=== PATIENT | male | born 1990 | race African-American/Black ===

== ENCOUNTER 2018-02-08 20:27 | Inpatient (IN) | payer OTHER ==
[~2018-02-08] VITALS: Ht 180.3 cm; Wt 68.0 kg
[2018-02-08 22:24] VITALS: Ht 180.3 cm; Wt 68.0 kg
[2018-02-08 22:58] LABS: BASOPHIL % 1.3 % (0-2); PLATELET COUNT 256 x10^3mcL (130-400); RED CELL DISTRIBUTION WIDTH 12.9 % (11.5-14.5)
[2018-02-08 23:50] LABS: AMPHETAMINE QUAL UR NONE DETECTED (NEG <=1000)
[2018-02-09 00:22] LABS: CALCIUM 9.2 mg/dL (8.5-10.1); CARBON DIOXIDE 27.6 mmol/L (21-32); CHLORIDE SERUM 102 mmol/L (98-107); CREATININE SERUM 1.2 mg/dL (0.7-1.3); GFR1 > 60 mL/min; GLUCOSE SERUM 83 mg/dL (74-106); POTASSIUM SERUM 3.5 mmol/L (3.5-5.1); SODIUM SERUM 139 mmol/L (136-145)
[2018-02-09 00:27] LABS: ALBUMIN 4.4 g/dL (3.4-5.0); ALKALINE PHOSPHATASE 69 U/L (46-116); ALT/SGPT 31 U/L (16-63); AST/SGOT 15 U/L (15-37); BILIRUBIN TOTAL 0.5 mg/dL (0.20-1.00)
[2018-02-09 16:16] LABS: microscopic required? NO
[2018-02-09] MEDS ORDERED: LAMICTAL150 MG PO (16:24)
[2018-02-09] MEDS ORDERED: ST. JOHN'S WOR150 M1 (16:25)
[2018-02-09 16:48] VITALS: BP 138/87
[2018-02-09 16:49] VITALS: BP 138/87
[2018-02-09] MEDS ORDERED: RISPERDAL3 M1 PO (16:54)
[2018-02-09 17:18] LABS: CHOLESTEROL/HDL RATIO 3.2; MAGNESIUM 2.3 mg/dL (1.8-2.4); PHOSPHOROUS 3.6 mg/dL (2.5-4.9)
[2018-02-09 17:24] LABS: T3 TOTAL 1.05 ng/mL
[2018-02-09 17:27] LABS: FREE T4 1.03 ng/dL (0.76-1.46); FREE THYROXINE INDEX 2.7 ug/dL (1.4-4.5)
[2018-02-09 18:15] LABS: urine erythrocyte NEGATIVE (NEGATIVE)
[2018-02-09 21:44] VITALS: BP 127/89
[2018-02-10 06:10] VITALS: BP 90/62
[2018-02-10 06:10] LABS: BASOPHIL % 0.6 % (0-2); PLATELET COUNT 229 x10^3mcL (130-400); RED CELL DISTRIBUTION WIDTH 12.4 % (11.5-14.5)
[2018-02-10 06:31] LABS: CARBON DIOXIDE 27.6 mmol/L (21-32); CHLORIDE SERUM 106 mmol/L (98-107); CREATININE SERUM 1.2 mg/dL (0.7-1.3); GFR1 > 60 mL/min; GLUCOSE SERUM 86 mg/dL (74-106); PHOSPHOROUS 4.8 mg/dL (2.5-4.9); SODIUM SERUM 145 mmol/L (136-145)
[2018-02-10 09:23] VITALS: BP 128/84
[2018-02-10 20:44] VITALS: BP 116/71
[2018-02-11 06:09] VITALS: BP 119/74
[2018-02-11 08:29] VITALS: BP 118/76
[2018-02-11 13:22] VITALS: BP 120/84
[2018-02-11] MEDS ORDERED: BUS5 PO (15:39)
[2018-02-11 17:27] VITALS: BP 141/95
== END 2018-02-11 19:22 | disposition home or self-care (01) | DRG 753 ==
LOC: ED 20:27 → DU 02-09 16:00
PROVIDERS: Emergency Medicine; Family Medicine Sports Medicine
DX: F31.4 Bipolar disorder, current episode depressed, severe, without psychotic features (principal); F25.1 Schizoaffective disorder, depressive type; E78.5 Hyperlipidemia, unspecified; Z91.14 Patient's other noncompliance with medication regimen; F17.210 Nicotine dependence, cigarettes, uncomplicated; F42.9 Obsessive-compulsive disorder, unspecified; F41.9 Anxiety disorder, unspecified
CPT/HCPCS: 83880; 84439; G0480

== ENCOUNTER 2018-04-06 12:06 | Emergency (ER) | payer SELFPAY ==
[~2018-04-06] VITALS: Ht 180.3 cm; Wt 77.1 kg
[~2018-04-06 12:06] MED LIST: BUS5 PO; LAMICTAL150 MG PO; RISPERDAL3 M1 PO; ST. JOHN'S WOR150 M1
[2018-04-06 12:24] VITALS: Ht 180.3 cm; Wt 77.1 kg
[2018-04-06 13:03] VITALS: BP 115/69
== END 2018-04-06 13:03 | disposition home or self-care (01) ==
LOC: ED 12:06
DX: F91.9 Conduct disorder, unspecified (principal); Z76.0 Encounter for issue of repeat prescription

== ENCOUNTER 2018-09-19 07:20 | Inpatient (IN) | payer MEDICAID ==
[~2018-09-19] VITALS: Ht 180.3 cm; Wt 65.0 kg
[2018-09-19 07:30] VITALS: Ht 180.3 cm; Wt 65.0 kg
[2018-09-19 08:20] LABS: BASOPHIL % 0.6 % (0-2); PLATELET COUNT 234 x10^3mcL (130-400); RED CELL DISTRIBUTION WIDTH 11.6 % (11.5-14.5)
[2018-09-19 08:34] LABS: ALBUMIN 4.1 g/dL (3.4-5.0); ALKALINE PHOSPHATASE 62 U/L (46-116); ALT/SGPT 31 U/L (16-63); AST/SGOT 22 U/L (15-37); BILIRUBIN TOTAL 0.79 mg/dL (0.20-1.00); CALCIUM 8.7 mg/dL (8.5-10.1); CARBON DIOXIDE 30.4 mmol/L (21-32); CHLORIDE SERUM 104 mmol/L (98-107); CREATININE SERUM 1.1 mg/dL (0.7-1.3); GFR1 > 60 mL/min; GLUCOSE SERUM 89 mg/dL (74-106); POTASSIUM SERUM 3.6 mmol/L (3.5-5.1); SODIUM SERUM 143 mmol/L (136-145); TOTAL PROTEIN, SERUM 7.7 g/dL (6.4-8.2)
[2018-09-19 09:56] LABS: UA SPECIFIC GRAVITY >=1.030 (1.005-1.035); microscopic required? YES; urine erythrocyte NEGATIVE (NEGATIVE)
[2018-09-19 10:03] LABS: AMPHETAMINE QUAL UR NONE DETECTED (See below)
[2018-09-20 02:33] VITALS: BP 112/81
[2018-09-20 02:48] LABS: PHOSPHOROUS 4.4 mg/dL (2.5-4.9)
[2018-09-20 02:49] LABS: CHOLESTEROL/HDL RATIO 2.4
[2018-09-20 02:56] LABS: T3 TOTAL 0.94 ng/mL
[2018-09-20 03:01] LABS: FREE T4 0.91 ng/dL (0.76-1.46); FREE THYROXINE INDEX 2.2 ug/dL (1.4-4.5); T4(THYROXINE) 6.1 ug/dL (4.7-13.3)
[2018-09-20 05:14] VITALS: BP 112/69
[2018-09-20 10:30] VITALS: BP 112/83
[2018-09-20 20:49] VITALS: BP 112/62
[2018-09-21 05:26] VITALS: BP 118/79
[2018-09-21 08:37] VITALS: BP 130/76
[2018-09-21 16:39] VITALS: BP 131/83
[2018-09-21 21:49] VITALS: BP 106/61
[2018-09-22 05:29] VITALS: BP 117/93
[2018-09-22 08:08] VITALS: BP 113/76
[2018-09-22 17:15] VITALS: BP 124/88
[2018-09-22 21:22] VITALS: BP 129/78
[2018-09-23 05:13] VITALS: BP 122/85
[2018-09-23 09:45] VITALS: BP 123/88
[2018-09-23 18:46] VITALS: BP 124/81
[2018-09-23 20:31] VITALS: BP 114/71
[2018-09-24 06:14] VITALS: BP 123/85
[2018-09-24 06:56] LABS: CALCIUM 9.1 mg/dL (8.5-10.1); CARBON DIOXIDE 29.7 mmol/L (21-32); CHLORIDE SERUM 103 mmol/L (98-107); CREATININE SERUM 1.1 mg/dL (0.7-1.3); GFR1 > 60 mL/min; GLUCOSE SERUM 84 mg/dL (74-106); POTASSIUM SERUM 3.8 mmol/L (3.5-5.1); SODIUM SERUM 138 mmol/L (136-145)
[2018-09-24 07:39] LABS: BASOPHIL % 0.6 % (0-2); PLATELET COUNT 213 x10^3mcL (130-400); RED CELL DISTRIBUTION WIDTH 12.8 % (11.5-14.5)
[2018-09-24 08:50] VITALS: BP 125/84
[2018-09-24 16:35] VITALS: BP 120/82
[2018-09-24 19:48] VITALS: BP 122/86
[2018-09-25 05:50] VITALS: BP 118/85
[2018-09-25 09:02] VITALS: BP 119/78
[2018-09-25 17:57] VITALS: BP 124/89
[2018-09-25 19:52] VITALS: BP 123/81
[2018-09-26 06:19] VITALS: BP 119/78
[2018-09-26 07:33] VITALS: BP 109/61
[2018-09-26 12:04] VITALS: BP 120/76
[2018-09-26 13:02] VITALS: BP 120/76
[2018-09-26 16:01] VITALS: BP 127/81
[2018-09-26 21:00] VITALS: BP 112/84
[2018-09-27 05:00] VITALS: BP 107/75
[2018-09-27 08:04] VITALS: BP 131/74
[2018-09-27 17:45] VITALS: BP 123/83
[2018-09-27 20:13] VITALS: BP 107/69
[2018-09-28 06:54] VITALS: BP 115/79
[2018-09-28 08:38] VITALS: BP 120/81
== END 2018-09-28 14:26 | disposition home or self-care (01) | DRG 751 ==
LOC: ED 07:20 → MU 09-20 00:52
PROVIDERS: Emergency Medicine; Family Medicine; Internal Medicine
DX: F23 Brief psychotic disorder (principal); N17.0 Acute kidney failure with tubular necrosis; R45.850 Homicidal ideations; R45.851 Suicidal ideations; F32.9 Major depressive disorder, single episode, unspecified; Z68.20 Body mass index [BMI] 20.0-20.9, adult; F17.210 Nicotine dependence, cigarettes, uncomplicated
CPT/HCPCS: 84439; 90658; G0480; J7030; Q0092

== ENCOUNTER 2018-09-29 09:48 | Emergency (ER) | payer MEDICAID ==
[~2018-09-29] VITALS: Ht 180.3 cm; Wt 67.1 kg
[2018-09-29 09:50] VITALS: BP 132/68; Ht 180.3 cm; Wt 67.1 kg
== END 2018-09-29 10:52 | disposition home or self-care (01) ==
LOC: ED 09:48
DX: R45.851 Suicidal ideations (principal)

== ENCOUNTER 2018-10-03 08:36 | Inpatient (IN) | payer MEDICAID ==
[~2018-10-03] VITALS: Ht 180.3 cm; Wt 66.3 kg
[2018-10-03 08:44] VITALS: Ht 180.3 cm; Wt 66.3 kg
[2018-10-03 10:03] LABS: CALCIUM 8.6 mg/dL (8.5-10.1); CARBON DIOXIDE 29.9 mmol/L (21-32); CHLORIDE SERUM 99 mmol/L (98-107); CREATININE SERUM 1.2 mg/dL (0.7-1.3); GFR1 > 60 mL/min; GLUCOSE SERUM 95 mg/dL (74-106); POTASSIUM SERUM 3.7 mmol/L (3.5-5.1); SODIUM SERUM 136 mmol/L (136-145)
[2018-10-03 10:06] LABS: BASOPHIL % 0.4 % (0-2); PLATELET COUNT 188 x10^3mcL (130-400); RED CELL DISTRIBUTION WIDTH 12.3 % (11.5-14.5)
[2018-10-03 10:16] LABS: ALBUMIN 3.6 g/dL (3.4-5.0); ALKALINE PHOSPHATASE 74 U/L (46-116); ALT/SGPT 51 U/L (16-63); AST/SGOT 24 U/L (15-37); BILIRUBIN TOTAL 1.3 mg/dL (0.20-1.00); T4(THYROXINE) 5.7 ug/dL (4.7-13.3); TOTAL PROTEIN, SERUM 7.5 g/dL (6.4-8.2)
[2018-10-03 10:30] LABS: UA SPECIFIC GRAVITY 1.025 (1.005-1.035); microscopic required? YES; urine erythrocyte TRACE (NEGATIVE)
[2018-10-03 10:43] LABS: AMPHETAMINE QUAL UR NONE DETECTED (See below)
[2018-10-03 11:52] LABS: microscopic required? NO
[2018-10-03 12:34] LABS: urine erythrocyte NEGATIVE (NEGATIVE)
[2018-10-04 14:13] LABS: PHOSPHOROUS 4.2 mg/dL (2.5-4.9)
[2018-10-04 14:14] LABS: CHOLESTEROL/HDL RATIO 2.6
[2018-10-04 15:08] VITALS: BP 116/77
[2018-10-04 17:23] VITALS: BP 116/77
[2018-10-04 20:30] VITALS: BP 102/61
[2018-10-05 04:28] VITALS: BP 106/70
[2018-10-05 05:53] LABS: BASOPHIL % 0.5 % (0-2); PLATELET COUNT 195 x10^3mcL (130-400); RED CELL DISTRIBUTION WIDTH 12.5 % (11.5-14.5)
[2018-10-05 06:08] LABS: CALCIUM 8.2 mg/dL (8.5-10.1); CHLORIDE SERUM 107 mmol/L (98-107); GFR1 > 60 mL/min; GLUCOSE SERUM 93 mg/dL (74-106); MAGNESIUM 2.1 mg/dL (1.8-2.4); PHOSPHOROUS 4.4 mg/dL (2.5-4.9); POTASSIUM SERUM 3.7 mmol/L (3.5-5.1); SODIUM SERUM 142 mmol/L (136-145)
[2018-10-05 07:55] VITALS: BP 123/91
[2018-10-05 12:14] VITALS: BP 104/70
[2018-10-05] MEDS ORDERED: BAY PO (15:35)
[2018-10-05] MEDS ORDERED: LOV60I SC (15:35)
[2018-10-05 15:36] VITALS: BP 104/70
[2018-10-05 16:29] VITALS: BP 117/74
[2018-10-05] MEDS ORDERED: METOPROLOL TART25 M1 PO (16:38)
[2018-10-05 20:58] VITALS: BP 105/65
[2018-10-06 05:32] VITALS: BP 110/79
[2018-10-06 08:50] VITALS: BP 114/75
[2018-10-06 12:15] VITALS: BP 116/71
[2018-10-06 17:07] VITALS: BP 105/64
[2018-10-06 21:25] VITALS: BP 109/71
[2018-10-07 05:39] VITALS: BP 106/69
[2018-10-07 06:02] LABS: BASOPHIL % 0.5 % (0-2); PLATELET COUNT 232 x10^3mcL (130-400); RED CELL DISTRIBUTION WIDTH 12.9 % (11.5-14.5)
[2018-10-07 06:15] LABS: CALCIUM 8.3 mg/dL (8.5-10.1); CARBON DIOXIDE 29.6 mmol/L (21-32); CHLORIDE SERUM 110 mmol/L (98-107); GFR1 > 60 mL/min; GLUCOSE SERUM 86 mg/dL (74-106); PHOSPHOROUS 3.6 mg/dL (2.5-4.9); SODIUM SERUM 146 mmol/L (136-145)
[2018-10-07 08:03] VITALS: BP 112/76
[2018-10-07 13:03] VITALS: BP 110/76
[2018-10-07 17:09] VITALS: BP 115/74
[2018-10-07 18:03] VITALS: BP 115/74
[2018-10-08] MEDS ORDERED: WELLBUTRIN XL150 M1 PO (20:42)
[2018-10-08] MEDS ORDERED: BUSPIRONE HCL10 MG PO (20:42)
[2018-10-08] MEDS ORDERED: COLACE100 MG PO (20:42)
[2018-10-08] MEDS ORDERED: LOV40I SC (20:42)
[2018-10-08] MEDS ORDERED: GOOD SENSE ASPI81 M3 PO (20:43)
[2018-10-08] MEDS ORDERED: METOPROLOL TART25 M1 PO (20:43)
[2018-10-08] MEDS ORDERED: SEROQUEL50 M1 PO (20:43)
[2018-10-08] MEDS ORDERED: NORCO1 TA2 PO (20:44)
[2018-10-08] MEDS ORDERED: ZOF4 PO (20:44)
[2018-10-08] MEDS ORDERED: OSCD PO (20:45)
[2018-10-08] MEDS ORDERED: APAP500 MG PO (20:45)
== END 2018-10-07 18:58 | disposition short-term general hospital (02) | DRG 753 ==
LOC: ED 08:36 → DU 10-04 12:39 → MU 10-04 12:39 → DU 10-04 14:52 → MU 10-04 14:55 → DU 10-04 15:21
PROVIDERS: Emergency Medicine; Family Medicine; Internal Medicine
DX: F31.9 Bipolar disorder, unspecified (principal); I24.9 Acute ischemic heart disease, unspecified; R45.851 Suicidal ideations; E83.51 Hypocalcemia; R45.850 Homicidal ideations; Z91.5 Personal history of self-harm; Z68.21 Body mass index [BMI] 21.0-21.9, adult; F17.210 Nicotine dependence, cigarettes, uncomplicated
CPT/HCPCS: 83880; G0480; J1650; J7030; Q0092; Q0163

== ENCOUNTER 2018-10-08 20:13 | Inpatient (IN) | payer MEDICAID ==
[~2018-10-08] VITALS: Ht 180.3 cm; Wt 66.8 kg
[~2018-10-08 20:13] MED LIST changes: +BAY PO; +LOV60I SC; +METOPROLOL TART25 M1 PO
[2018-10-08 20:28] VITALS: BP 132/85
[2018-10-08] MEDS ORDERED: LOV40I SC (20:42)
[2018-10-08] MEDS ORDERED: WELLBUTRIN XL150 M1 PO (20:42)
[2018-10-08] MEDS ORDERED: BUSPIRONE HCL10 MG PO (20:42)
[2018-10-08] MEDS ORDERED: COLACE100 MG PO (20:42)
[2018-10-08] MEDS ORDERED: SEROQUEL50 M1 PO (20:43)
[2018-10-08] MEDS ORDERED: GOOD SENSE ASPI81 M3 PO (20:43)
[2018-10-08] MEDS ORDERED: METOPROLOL TART25 M1 PO (20:43)
[2018-10-08] MEDS ORDERED: ZOF4 PO (20:44)
[2018-10-08] MEDS ORDERED: NORCO1 TA2 PO (20:44)
[2018-10-08] MEDS ORDERED: OSCD PO (20:45)
[2018-10-08] MEDS ORDERED: APAP500 MG PO (20:45)
[2018-10-09 05:49] VITALS: BP 109/67
[2018-10-09 06:48] LABS: BASOPHIL % 0.1 % (0-2); PLATELET COUNT 306 x10^3mcL (130-400); RED CELL DISTRIBUTION WIDTH 12.9 % (11.5-14.5)
[2018-10-09 06:55] LABS: CALCIUM 9.3 mg/dL (8.5-10.1); CARBON DIOXIDE 27.5 mmol/L (21-32); CHLORIDE SERUM 101 mmol/L (98-107); CREATININE SERUM 1.1 mg/dL (0.7-1.3); GFR1 > 60 mL/min; GLUCOSE SERUM 90 mg/dL (74-106); POTASSIUM SERUM 4.2 mmol/L (3.5-5.1); SODIUM SERUM 138 mmol/L (136-145)
[2018-10-09 07:16] VITALS: BP 122/67
[2018-10-09 12:53] VITALS: BP 101/67
[2018-10-09 17:12] VITALS: BP 104/61
[2018-10-09 21:05] VITALS: BP 115/64
[2018-10-10 05:55] VITALS: BP 110/68
[2018-10-10 06:52] LABS: BASOPHIL % 0.4 % (0-2); PLATELET COUNT 308 x10^3mcL (130-400); RED CELL DISTRIBUTION WIDTH 13.2 % (11.5-14.5)
[2018-10-10 07:34] LABS: CALCIUM 9.1 mg/dL (8.5-10.1); CARBON DIOXIDE 30.3 mmol/L (21-32); CHLORIDE SERUM 102 mmol/L (98-107); CREATININE SERUM 1.1 mg/dL (0.7-1.3); GFR1 > 60 mL/min; GLUCOSE SERUM 86 mg/dL (74-106); MAGNESIUM 1.7 mg/dL (1.8-2.4); PHOSPHOROUS 3.6 mg/dL (2.5-4.9); POTASSIUM SERUM 4.1 mmol/L (3.5-5.1); SODIUM SERUM 138 mmol/L (136-145)
[2018-10-10 08:30] VITALS: BP 97/70
[2018-10-10 12:38] VITALS: BP 107/70
[2018-10-10 17:19] VITALS: BP 108/66
[2018-10-10 21:16] VITALS: BP 112/72
[2018-10-11 05:18] VITALS: BP 110/76
[2018-10-11 08:13] VITALS: BP 115/77
[2018-10-11 13:00] VITALS: BP 128/86
[2018-10-11 17:43] VITALS: BP 117/70
[2018-10-11 21:25] VITALS: BP 105/71
[2018-10-12 05:20] VITALS: BP 117/78
[2018-10-12 08:37] VITALS: BP 128/86
[2018-10-12 17:20] VITALS: BP 122/75
[2018-10-12 21:00] VITALS: BP 118/80
[2018-10-13 06:04] VITALS: BP 112/71
[2018-10-13 08:36] VITALS: BP 127/82
[2018-10-13 14:52] VITALS: BP 114/79
[2018-10-13 18:18] VITALS: BP 119/80
[2018-10-13 19:50] VITALS: BP 116/73
[2018-10-14 06:24] VITALS: BP 114/78
[2018-10-14 07:02] LABS: CALCIUM 9.5 mg/dL (8.5-10.1); CARBON DIOXIDE 30.4 mmol/L (21-32); CHLORIDE SERUM 99 mmol/L (98-107); CREATININE SERUM 1.2 mg/dL (0.7-1.3); GFR1 > 60 mL/min; GLUCOSE SERUM 89 mg/dL (74-106); PHOSPHOROUS 4.6 mg/dL (2.5-4.9); POTASSIUM SERUM 4.5 mmol/L (3.5-5.1); SODIUM SERUM 138 mmol/L (136-145)
[2018-10-14 07:53] LABS: BASOPHIL % 0.5 % (0-2); PLATELET COUNT 331 x10^3mcL (130-400); RED CELL DISTRIBUTION WIDTH 12.8 % (11.5-14.5)
[2018-10-14 08:08] VITALS: BP 119/81
[2018-10-14 15:58] VITALS: BP 126/82
[2018-10-14 19:44] VITALS: BP 122/81
[2018-10-15 06:00] VITALS: BP 126/83
[2018-10-15 08:48] VITALS: BP 121/76
[2018-10-15 17:38] VITALS: BP 125/90
[2018-10-15 20:19] VITALS: BP 110/67
[2018-10-16 05:54] VITALS: BP 115/80
[2018-10-16 08:31] VITALS: BP 119/88
[2018-10-16 17:00] VITALS: BP 126/85
[2018-10-16 19:37] VITALS: BP 123/86
[2018-10-17 05:49] VITALS: BP 118/76
[2018-10-17 10:00] VITALS: BP 110/79
[2018-10-17 18:20] VITALS: BP 120/86
[2018-10-17 21:03] VITALS: BP 119/82
[2018-10-18 05:31] VITALS: BP 122/87
[2018-10-18 08:30] VITALS: BP 104/77
[2018-10-18 17:41] VITALS: BP 120/84
[2018-10-18 19:40] VITALS: BP 123/79
[2018-10-19 05:38] VITALS: BP 121/78
[2018-10-19 08:03] VITALS: BP 117/72
[2018-10-19 18:44] VITALS: BP 122/72
[2018-10-19 19:10] VITALS: BP 130/84
[2018-10-20 05:03] VITALS: BP 128/83
[2018-10-20] MEDS ORDERED: SERTRALINE50 M1 PO (07:07)
[2018-10-20] MEDS ORDERED: QUETIAPINE FUMA25 M1 PO (07:08)
[2018-10-20] MEDS ORDERED: BUS5 PO (07:08)
[2018-10-20] MEDS ORDERED: PROTONIX40 MG/Pac1 PO (07:09)
[2018-10-20 09:21] VITALS: BP 120/78
[2018-10-20 15:23] VITALS: BP 120/78
== END 2018-10-20 17:55 | disposition home or self-care (01) | DRG 753 ==
LOC: DU 20:13 → MU 10-12 12:06
PROVIDERS: Family Medicine; Internal Medicine
DX: F31.9 Bipolar disorder, unspecified (principal); I21.A1 Myocardial infarction type 2; R45.851 Suicidal ideations; E83.42 Hypomagnesemia; E16.2 Hypoglycemia, unspecified; R45.850 Homicidal ideations; E83.51 Hypocalcemia
CPT/HCPCS: J1650

== ENCOUNTER 2019-03-14 23:29 | Emergency (ER) | payer MEDICAID ==
[~2019-03-14] VITALS: Ht 180.3 cm; Wt 70.3 kg
[~2019-03-14 23:29] MED LIST changes: +APAP500 MG PO; +BUSPIRONE HCL10 MG PO; +COLACE100 MG PO; +GOOD SENSE ASPI81 M3 PO; +LOV40I SC; +NORCO1 TA2 PO; +OSCD PO; +PROTONIX40 MG/Pac1 PO; +QUETIAPINE FUMA25 M1 PO; +SEROQUEL50 M1 PO; +SERTRALINE50 M1 PO; +WELLBUTRIN XL150 M1 PO; +ZOF4 PO
[2019-03-14 23:40] VITALS: Ht 180.3 cm; Wt 70.3 kg
[2019-03-15 01:11] LABS: BASOPHIL % 0.2 % (0-2); PLATELET COUNT 200 x10^3mcL (130-400); RED CELL DISTRIBUTION WIDTH 12.3 % (11.5-14.5)
[2019-03-15 01:15] LABS: CALCIUM 8.7 mg/dL (8.5-10.1); CARBON DIOXIDE 27.9 mmol/L (21-32); CHLORIDE SERUM 104 mmol/L (98-107); CREATININE SERUM 0.9 mg/dL (0.7-1.3); GFR1 > 60 mL/min; GLUCOSE SERUM 137 mg/dL (74-106); POTASSIUM SERUM 3.2 mmol/L (3.5-5.1); SODIUM SERUM 140 mmol/L (136-145)
[2019-03-15 01:17] LABS: urine erythrocyte NEGATIVE (NEGATIVE)
[2019-03-15 01:29] LABS: ALBUMIN 3.9 g/dL (3.4-5.0); ALKALINE PHOSPHATASE 68 U/L (46-116); ALT/SGPT 29 U/L (16-63); AST/SGOT 17 U/L (15-37); BILIRUBIN TOTAL 0.4 mg/dL (0.20-1.00); FREE T4 1.05 ng/dL (0.76-1.46); TOTAL PROTEIN, SERUM 7.5 g/dL (6.4-8.2)
[2019-03-15 01:32] LABS: AMPHETAMINE QUAL UR NONE DETECTED (See below)
[2019-03-15 11:49] LABS: microscopic required? YES
[2019-03-16 08:27] VITALS: BP 136/79
== END 2019-03-16 08:27 | disposition home or self-care (01) ==
LOC: ED 23:29
PROVIDERS: Emergency Medicine
DX: F32.9 Major depressive disorder, single episode, unspecified (principal); F41.9 Anxiety disorder, unspecified
CPT/HCPCS: 36415; 84439; G0480

== ENCOUNTER 2020-02-20 21:16 | Emergency (ER) | payer SELFPAY ==
[~2020-02-20] VITALS: Ht 180.3 cm; Wt 83.5 kg
[2020-02-20 21:26] VITALS: Ht 180.3 cm; Wt 83.5 kg
[2020-02-20 22:37] LABS: BASOPHIL % 0.3 % (0-2); PLATELET COUNT 238 x10^3mcL (130-400); RED CELL DISTRIBUTION WIDTH 12.8 % (11.5-14.5)
[2020-02-20 22:47] LABS: CALCIUM 9.2 mg/dL (8.5-10.1); CARBON DIOXIDE 29.6 mmol/L (21-32); CHLORIDE SERUM 104 mmol/L (98-107); CREATININE SERUM 1.2 mg/dL (0.7-1.3); GFR1 > 60 mL/min; GLUCOSE SERUM 102 mg/dL (74-106); POTASSIUM SERUM 3.6 mmol/L (3.5-5.1); SODIUM SERUM 143 mmol/L (136-145)
[2020-02-20 22:51] LABS: microscopic required? NO
[2020-02-20 22:58] LABS: UA SPECIFIC GRAVITY 1.025 (1.005-1.035); urine erythrocyte NEGATIVE (NEGATIVE)
[2020-02-20 23:07] LABS: ALBUMIN 3.9 g/dL (3.4-5.0); ALKALINE PHOSPHATASE 82 U/L (46-116); ALT/SGPT 57 U/L (16-63); AST/SGOT 25 U/L (15-37); BILIRUBIN TOTAL 0.3 mg/dL (0.20-1.00); CHOLESTEROL 169 mg/dL (<200); HDL CHOLESTEROL 58 mg/dL (40-60); LIPASE 87 IU/L (73-393); MAGNESIUM 1.8 mg/dL (1.8-2.4); TOTAL PROTEIN, SERUM 7.6 g/dL (6.4-8.2)
[2020-02-20 23:19] LABS: AMPHETAMINE QUAL UR NONE DETECTED (See below)
[2020-02-20 23:38] VITALS: BP 132/97
== END 2020-02-20 23:38 | disposition home or self-care (01) ==
LOC: ED 21:16
PROVIDERS: Emergency Medicine
DX: R20.2 Paresthesia of skin (principal); F17.210 Nicotine dependence, cigarettes, uncomplicated; Z71.6 Tobacco abuse counseling
CPT/HCPCS: 36415; 82962; 83880; 99406

== ENCOUNTER 2020-02-23 11:10 | Emergency (ER) | payer SELFPAY ==
[~2020-02-23] VITALS: Ht 180.3 cm; Wt 83.9 kg
[2020-02-23 12:24] VITALS: BP 130/89
== END 2020-02-23 12:24 | disposition home or self-care (01) ==
LOC: ED 11:10
DX: R53.1 Weakness (principal)
CPT/HCPCS: 82962; 99406

== ENCOUNTER 2020-02-23 17:23 | Emergency (ER) | payer OTHER ==
[~2020-02-23] VITALS: Ht 180.3 cm; Wt 83.9 kg
[2020-02-23 17:31] VITALS: Ht 180.3 cm; Wt 83.9 kg
[2020-02-23 18:38] VITALS: BP 133/82
== END 2020-02-23 18:40 | disposition home or self-care (01) ==
LOC: ED 17:23
DX: S16.1XXA Strain of muscle, fascia and tendon at neck level, initial encounter (principal); S39.012A Strain of muscle, fascia and tendon of lower back, initial encounter; V49.49XA Driver injured in collision with other motor vehicles in traffic accident, initial encounter; Y93.I9 Activity, other involving external motion; Y92.488 Other paved roadways as the place of occurrence of the external cause; Y99.8 Other external cause status

== ENCOUNTER 2020-04-01 13:16 | Emergency (ER) | payer MEDICAID ==
[~2020-04-01] VITALS: Ht 180.3 cm; Wt 81.6 kg
[2020-04-01 13:26] VITALS: Ht 180.3 cm; Wt 81.6 kg
[2020-04-01 14:39] LABS: BASOPHIL % 1.7 % (0-2)
[2020-04-01 14:42] LABS: PLATELET COUNT 273 x10^3mcL (130-400); RED CELL DISTRIBUTION WIDTH 11.4 % (11.5-14.5)
[2020-04-01 14:48] LABS: CALCIUM 9.3 mg/dL (8.5-10.1); CARBON DIOXIDE 28.7 mmol/L (21-32); CHLORIDE SERUM 104 mmol/L (98-107); CREATININE SERUM 1.2 mg/dL (0.7-1.3); GFR1 > 60 mL/min; GLUCOSE SERUM 97 mg/dL (74-106); POTASSIUM SERUM 3.9 mmol/L (3.5-5.1); SODIUM SERUM 142 mmol/L (136-145)
[2020-04-01 14:53] LABS: ALBUMIN 4.1 g/dL (3.4-5.0); ALKALINE PHOSPHATASE 69 U/L (46-116); ALT/SGPT 33 U/L (16-63); AST/SGOT 20 U/L (15-37); BILIRUBIN TOTAL 0.6 mg/dL (0.20-1.00); TOTAL PROTEIN, SERUM 7.4 g/dL (6.4-8.2)
[2020-04-01 15:25] VITALS: BP 123/83
== END 2020-04-01 15:25 | disposition home or self-care (01) ==
LOC: ED 13:16
PROVIDERS: Emergency Medicine
DX: J40 Bronchitis, not specified as acute or chronic (principal); Z03.818 Encounter for observation for suspected exposure to other biological agents ruled out
CPT/HCPCS: 36415; 87804; Q0092

== ENCOUNTER 2020-06-11 14:39 | Emergency (ER) | payer OTHER ==
[~2020-06-11] VITALS: Ht 180.3 cm; Wt 77.1 kg
[2020-06-11 15:08] VITALS: Ht 180.3 cm; Wt 77.1 kg
[2020-06-11 19:10] LABS: BASOPHIL % 0.9 % (0-2); PLATELET COUNT 237 x10^3mcL (130-400); RED CELL DISTRIBUTION WIDTH 12.9 % (11.5-14.5)
[2020-06-11 19:32] LABS: CALCIUM 8.9 mg/dL (8.5-10.1); CARBON DIOXIDE 28.7 mmol/L (21-32); CHLORIDE SERUM 106 mmol/L (98-107); CREATININE SERUM 1.2 mg/dL (0.7-1.3); GFR1 > 60 mL/min; GLUCOSE SERUM 80 mg/dL (74-106); SODIUM SERUM 143 mmol/L (136-145)
[2020-06-11 19:37] LABS: ALBUMIN 3.9 g/dL (3.4-5.0); ALKALINE PHOSPHATASE 59 U/L (46-116); ALT/SGPT 27 U/L (16-63); AST/SGOT 16 U/L (15-37); BILIRUBIN TOTAL 0.46 mg/dL (0.20-1.00); T3 TOTAL 1.45 ng/mL; TOTAL PROTEIN, SERUM 6.9 g/dL (6.4-8.2)
[2020-06-11 19:51] LABS: AMPHETAMINE QUAL UR NONE DETECTED (See below)
[2020-06-11 20:05] LABS: FREE T4 0.96 ng/dL (0.76-1.46); FREE THYROXINE INDEX 2.1 ug/dL (1.4-4.5); T4(THYROXINE) 6.2 ug/dL (4.7-13.3)
[2020-06-11 20:17] VITALS: BP 127/81
== END 2020-06-11 20:17 | disposition home or self-care (01) ==
LOC: ED 14:39
PROVIDERS: Emergency Medicine
DX: R42 Dizziness and giddiness (principal); R22.1 Localized swelling, mass and lump, neck
CPT/HCPCS: 82962; 84439